=== PATIENT | male | born 1940 | race Caucasian/White ===

== ENCOUNTER 2020-07-08 12:55 | Emergency (ER) | payer MEDICARE, OTHER ==
[~2020-07-08] VITALS: Ht 170.1 cm; Wt 81.6 kg
[2020-07-08 13:00] VITALS: BP 138/54
--- NOTE | 2020-07-08 13:04 | ED General ---
General Chief Complaint: Neuro-Stroke Like Symptoms Stated Complaint: SLURRED SPEECH; AMS History of Present Illness Date Seen by Provider: Jul 08, 2020 Time Seen by Provider: 13:03 Initial Comments 80-year-old male presents because he felt like he had some confusion and could not determine what was real and not real. Patient has difficulty explaining what he means. Patient reports he was sent there pain his pills when it happened. Patient denied any focal weakness, headache. Patient reports this morning when he got up he felt good. Patient denies any cough, fever or other systemic complaints. He does report frequent urination. He has a history of Parkinson's that was diagnosed about 12 years ago. No other complaints noted Allergies and Home Medications Allergies Coded Allergies: No Known Drug Allergies (Unverified , 07/08/20) Patient Home Medication List Home Medication List Reviewed: Yes Review of Systems Review of Systems Constitutional: see HPI; No chills, No fever EENTM: no symptoms reported Respiratory: No cough, No short of breath Cardiovascular: No chest pain, No palpitations Gastrointestinal: No abdominal pain, No nausea, No vomiting Musculoskeletal: no symptoms reported Skin: no symptoms reported Psychiatric/Neurological: See HPI Past Wksryrt-Ainxfq-Wluaku Hx Past Med/Social Hx: Reviewed Nursing Past Med/Soc Hx Physical Exam Vital Signs Vital Signs - First Documented 07/08/20 13:00 Temp 37.4 Pulse 74 Resp 15 B/P (MAP) 138/54 (82) Pulse Ox 96 O2 Delivery Room Air Capillary Refill : Height, Weight, BMI Height: '" Weight: lbs. oz. kg; BMI Method: General Appearance: No Apparent Distress, Other (Course tremor consistent with Parkinson's) Eyes: Bilateral Eye Normal Inspection HEENT: PERRL/EOMI, Moist Mucous Membranes Neck: Non Tender, Supple Respiratory: Lungs Clear, Normal Breath Sounds, No Accessory Muscle Use Cardiovascular: Regular Rate, Rhythm, No Edema Gastrointestinal: Non Tender, Soft Extremity: Normal Capillary Refill Neurologic/Psychiatric: Alert, Other (Course Parkinson's tremor noted otherwise no acute neurologic findings) Skin: Normal Color, Warm/Dry Focused Exam Lactate Level 07/08/20 13:05: Lactic Acid Level 1.98 Lactic Acid Level Laboratory Tests Test 07/08/20 13:05 Lactic Acid Level 1.98 MMOL/L (0.50-2.00) Progress/Results/Core Measures Suspected Sepsis SIRS Temperature: Pulse: Respiratory Rate: Laboratory Tests 07/08/20 13:05: White Blood Count 21.1H Blood Pressure / Mean: 07/08/20 13:05: Lactic Acid Level 1.98 Laboratory Tests 07/08/20 13:05: Creatinine 1.30, Platelet Count 201, Total Bilirubin 0.9 Results/Orders Lab Results Laboratory Tests Test 07/08/20 13:05 07/08/20 13:28 07/08/20 13:45 Range/Units White Blood Count 21.1 H 4.3-11.0 10^3/uL Red Blood Count 3.47 L 4.35-5.85 10^6/uL Hemoglobin 11.5 L 13.3-17.7 G/DL Hematocrit 34 L 40-54 % Mean Corpuscular Volume 97 80-99 FL Mean Corpuscular Hemoglobin 33 25-34 PG Mean Corpuscular Hemoglobin Concent 34 32-36 G/DL Red Cell Distribution Width 12.0 10.0-14.5 % Platelet Count 201 130-400 10^3/uL Mean Platelet Volume 9.5 7.4-10.4 FL Immature Granulocyte % (Auto) 1 % Neutrophils (%) (Auto) 84 H 42-75 % Lymphocytes (%) (Auto) 5 L 12-44 % Monocytes (%) (Auto) 10 0-12 % Eosinophils (%) (Auto) 0 0-10 % Basophils (%) (Auto) 0 0-10 % Neutrophils # (Auto) 17.8 H 1.8-7.8 X 10^3 Lymphocytes # (Auto) 1.1 1.0-4.0 X 10^3 Monocytes # (Auto) 2.0 H 0.0-1.0 X 10^3 Eosinophils # (Auto) 0.0 0.0-0.3 10^3/uL Basophils # (Auto) 0.0 0.0-0.1 10^3/uL Immature Granulocyte # (Auto) 0.2 H 0.0-0.1 10^3/uL Neutrophils % (Manual) 61 % Lymphocytes % (Manual) 6 % Monocytes % (Manual) 10 % Band Neutrophils 21 % Atypical Lymphocytes 2 % Blood Morphology Comment NORMAL Sodium Level 135 135-145 MMOL/L Potassium Level 4.9 3.6-5.0 MMOL/L Chloride Level 102 98-107 MMOL/L Carbon Dioxide Level 23 21-32 MMOL/L Anion Gap 10 5-14 MMOL/L Blood Urea Nitrogen 22 H 7-18 MG/DL Creatinine 1.30 0.60-1.30 MG/DL Estimat Glomerular Filtration Rate 53 BUN/Creatinine Ratio 17 Glucose Level 162 H 70-105 MG/DL Lactic Acid Level 1.98 0.50-2.00 MMOL/L Calcium Level 9.3 8.5-10.1 MG/DL Corrected Calcium 9.3 8.5-10.1 MG/DL Magnesium Level 1.9 1.6-2.4 MG/DL Total Bilirubin 0.9 0.1-1.0 MG/DL Aspartate Amino Transf (AST/SGOT) 21 5-34 U/L Alanine Aminotransferase (ALT/SGPT) 14 0-55 U/L Alkaline Phosphatase 84 40-136 U/L Total Protein 6.6 6.4-8.2 GM/DL Albumin 4.0 3.2-4.5 GM/DL Glucometer 153 H 70-110 MG/DL Urine Color YELLOW Urine Clarity SLIGHTLY CLOUDY Urine pH 7.5 5-9 Urine Specific [place] 1.015 L 1.016-1.022 Urine Protein NEGATIVE NEGATIVE Urine Glucose (UA) NEGATIVE NEGATIVE Urine Ketones NEGATIVE NEGATIVE Urine Nitrite POSITIVE H NEGATIVE Urine Bilirubin NEGATIVE NEGATIVE Urine Urobilinogen 0.2 < = 1.0 MG/DL Urine Leukocyte Esterase 2+ H NEGATIVE Urine RBC (Auto) TRACE H NEGATIVE Urine RBC 2-5 H /HPF Urine WBC 25-50 H /HPF Urine Squamous Epithelial Cells 2-5 /HPF Urine Crystals NONE /LPF Urine Bacteria LARGE H /HPF Urine Casts NONE /LPF Urine Mucus NEGATIVE /LPF Urine Culture Indicated YES My Orders Orders - MERCADO,JONO L DO Cbc With Automated Diff (07/08/20 13:04) Comprehensive Metabolic Panel (07/08/20 13:04) Magnesium (07/08/20 13:04) Ua Culture If Indicated (07/08/20 13:04) Accucheck Stat ONCE (07/08/20 13:04) Ekg Tracing (07/08/20 13:04) Monitor-Rhythm Ecg Trace Only (07/08/20 13:04) Chest 1 View Ap/Pa Only (07/08/20 13:04) Ct Head Wo (07/08/20 13:10) Manual Differential (07/08/20 13:05) Lactic Acid Analyzer (07/08/20 14:08) Ceftriaxone For Iv Use (Rocephin For I (07/08/20 14:15) Ed Iv/Invasive Line Start (07/08/20 14:11) Ns Iv 1000 Ml (Sodium Chloride 0.9%) (07/08/20 14:15) Urine Culture (07/08/20 13:45) Blood Culture (07/08/20 14:15) Medications Given in ED Current Medications Medications Dose Ordered Sig/Lissett Route Start Time Stop Time Status Last Admin Dose Admin Ceftriaxone Sodium 1000 mg/ Sterile Water 10 ml @ 200 mls/hr ONCE ONCE IV 07/08/20 14:15 07/08/20 14:17 DC 07/08/20 14:29 200 MLS/HR Vital Signs/I&O 07/08/20 13:00 Temp 37.4 Pulse 74 Resp 15 B/P (MAP) 138/54 (82) Pulse Ox 96 O2 Delivery Room Air Capillary Refill : Progress Note : Time: 14:38 Progress Note Patient with a urinary tract infection along with some poor dentition and tooth infection is likely because of the elevated white count. Patient is feeling very good. Given IV Rocephin in the ER. Normal lactic acid. Will prescribe him some antibiotics for outpatient and he will be discharged home as he is requested. Patient stable upon discharge ECG Initial ECG Impression Date: Jul 08, 2020 Initial ECG Impression Time: 13:09 Comment Very difficult to obtain due to patient coarse tremors with Parkinson's. No acute ST elevation or abnormalities noted. Heart rate around 70s. Diagnostic Imaging Diagonstic Imaging: CT Plain Films/CT/US/NM/MRI: head Comments [facility], [place] NAME: THAO [facility]ENORIO [facility] REC#: [id number] PT STATUS: REG ER : 1940 PHYSICIAN: JONO MERCADO DO ADMIT DATE: 07/08/20/ER FS Signed Date of Exam:07/08/20 CT HEAD WO EXAMINATION: CT head without contrast. TECHNIQUE: Multiple contiguous axial images were obtained through the brain without the use of intravenous contrast. All CT scans use one or more of the following dose optimizing techniques: automated exposure control, MA and/or KvP adjustment based on a patient size and exam type, or iterative reconstruction. HISTORY: Confusion. COMPARISON: None available. FINDINGS: No large acute territorial ischemia, mass, or hemorrhage. No midline shift or mass effect. The ventricles and cortical sulci are prominent. The basilar cisterns are patent and unremarkable. The orbits are normal. Paranasal sinuses are normal. Mastoid air cells are clear. No soft tissue abnormality is seen. No osseus lesions or fractures are seen. IMPRESSION: 1. No large acute territorial ischemia, mass, or hemorrhage. 2. Generalized parenchymal volume los Departure Impression Primary Impression: Acute cystitis Qualified Codes: N30.01 - Acute cystitis with hematuria Disposition: HOME, SELF-CARE Condition: Stable Departure-Patient Inst. Referrals: TWYLA [facility] APRN (PCP) Primary Care Physician [facility] (Family) Primary Care Physician Patient Instructions: Urinary Tract Infection, Adult (DC) Scripts Cephalexin (Cephalexin) 500 Mg Tablet 500 MG PO QID, #20 TAB 0 Refills Prov: JONO MERCADO DO 07/08/20 JONO MERCADO DO Jul 08, 2020 13:04
[2020-07-08 13:23] LABS: BASOPHILS % (AUTO) 0 % (0-10); EOSINOPHILS % (AUTO) 0 % (0-10); HEMATOCRIT 34 % (40-54); HEMOGLOBIN 11.5 G/DL (13.3-17.7); LYMPHOCYTES % (AUTO) 5 % (12-44); MEAN CORPUSCULAR HEMOGLOBIN 33 PG (25-34); MEAN CORPUSCULAR HGB CONC 34 G/DL (32-36); MEAN CORPUSCULAR VOLUME 97 FL (80-99); MEAN PLATELET VOLUME 9.5 FL (7.4-10.4); MONOCYTES % (AUTO) 10 % (0-12); NEUTROPHILS % (AUTO) 84 % (42-75); PLATELET COUNT 201 10^3/uL (130-400); WHITE BLOOD COUNT 21.1 10^3/uL (4.3-11.0)
[2020-07-08 13:24] LABS: LYMPHOCYTES # (AUTO) 1.1 X 10^3 (1.0-4.0); NEUTROPHILS # (AUTO) 17.8 X 10^3 (1.8-7.8)
[2020-07-08 13:42] LABS: ATYPICAL LYMPHOCYTES 2 %; BAND NEUTROPHILS 21 %; LYMPHOCYTES % (MANUAL) 6 %; MONOCYTES % (MANUAL) 10 %; NEUTROPHILS % (MANUAL) 61 %; RBC MORPH NORMAL
[2020-07-08 13:43] LABS: BILIRUBIN,TOTAL 0.9 MG/DL (0.1-1.0); CALCIUM 9.3 MG/DL (8.5-10.1); CREATININE SERUM 1.3 MG/DL (0.60-1.30); MAGNESIUM 1.9 MG/DL (1.6-2.4); POTASSIUM 4.9 MMOL/L (3.6-5.0)
[2020-07-08 13:44] LABS: TOTAL PROTEIN 6.6 GM/DL (6.4-8.2)
[2020-07-08 14:12] LABS: CLARITY,URINE SLIGHTLY CLOUDY; COLOR,URINE YELLOW; GLUCOSE, URINE (UA) NEGATIVE (NEGATIVE); PH,URINE 7.5 (5-9); PROTEIN,URINE NEGATIVE (NEGATIVE)
[2020-07-08 14:13] LABS: BACTERIA,URINE LARGE /HPF; BILIRUBIN,URINE NEGATIVE (NEGATIVE); KETONES,URINE NEGATIVE (NEGATIVE); LEUKOCYTE ESTERASE ,URINE 2+ (NEGATIVE); NITRITE,URINE POSITIVE (NEGATIVE); WBC,URINE 25-50 /HPF
[2020-07-08] MEDS ORDERED: cefTRIAXone FOR IV USE 1,000 MG in WATER (STERILE) FOR INJECTION 10 ML IV ONE (14:15)
[2020-07-08] MEDS ORDERED: NS IV 1000 ML 1,000 ML IV SCH (14:15)
--- NOTE | 2020-07-08 14:16 | Diagnostic Imaging Report ---
EXAMINATION: CT head without contrast. TECHNIQUE: Multiple contiguous axial images were obtained through the brain without the use of intravenous contrast. All CT scans use one or more of the following dose optimizing techniques: automated exposure control, MA and/or KvP adjustment based on a patient size and exam type, or iterative reconstruction. HISTORY: Confusion. COMPARISON: None available. FINDINGS: No large acute territorial ischemia, mass, or hemorrhage. No midline shift or mass effect. The ventricles and cortical sulci are prominent. The basilar cisterns are patent and unremarkable. The orbits are normal. Paranasal sinuses are normal. Mastoid air cells are clear. No soft tissue abnormality is seen. No osseus lesions or fractures are seen. IMPRESSION: 1. No large acute territorial ischemia, mass, or hemorrhage. 2. Generalized parenchymal volume loss. Dictated by: Dictated on workstation # [id number]
--- NOTE | 2020-07-08 14:27 | Diagnostic Imaging Report ---
INDICATION: weakness. TECHNIQUE: Single view chest 1:06 PM. CORRELATION STUDY: None FINDINGS: The heart size, mediastinal configuration and pulmonary vascularity are within normal limits. The lungs are clear with no consolidating infiltrate. There is no significant effusion or pneumothorax. IMPRESSION: 1. Negative appearing portable chest. Dictated by: Dictated on workstation # [id number]
[2020-07-08] MEDS ORDERED: CEPH500T PO (14:40)
== END 2020-07-08 14:49 | disposition home or self-care (01) ==
LOC: ER FS 12:58
DX: N30.01 Acute cystitis with hematuria (principal); G20 Parkinson's disease
CPT/HCPCS: 36415; 70450; 71045; 80053; 81000; 82962; 83605; 83735; 85007; 85027; 87040; 87077; 87088; 93005; 93041